=== PATIENT | male | born 1950 | race Caucasian/White ===

== ENCOUNTER 2017-08-08 17:58 | Emergency (ER) | payer MEDICARE, OTHER ==
[2017-08-08 18:18] LABS: Bilirubin Small (Negative); Blood, Urine Large (Negative); Glucose, Urine (Dipstick) Negative (Negative); Ketone, Urine Negative (Negative); Nitrite Negative (Negative); Protein, Urine (Dipstick) 30 mg/dL (Neg-Trace)
[2017-08-08 18:20] LABS: Hyaline Casts/LPF 4-6 HYALINE CAST LPF (0-3 Hyaline); Squamous Epithelial 0-3 HPF (0-3)
[2017-08-08 18:29] LABS: Bacteria/HPF 1+ HPF (None Seen); RBC/HPF GREATER THAN 50-TNTC HPF (0-3); Yeast-All Forms None Seen HPF (None Seen)
[2017-08-08] MEDS ORDERED: Ketorolac Tromethamine 30 MG/ML VIAL ONE (18:35)
[2017-08-08] MEDS ORDERED: Morphine 4 MG/ML VIAL ONE ×2 (18:35)
--- NOTE | 2017-08-08 19:14 | CT ---
CT ABDOMEN AND PELVIS NONCONTRAST: 08/08/17 HISTORY: Right flank pain. FINDINGS: The right renal collecting system and ureter are slightly distended to the level of a 0.5 cm calculus within the distal right ureter within the pelvis. Additional calcifications within the right renal calyces, at least three. They measure up to 0.5 cm g reatest diameter. The left renal collecting system, ureter, and urinary bladder are decompressed without stone evident. Lack of contrast limits evaluation for other abnormalities. There are degenerative changes of the lum bar spine. Dystrophic calcification is apparent within the enlarged prostate gland. IMPRESSION: Partial obstruction at a 5 mm distal right ureteral calculus. Additional nonobstructing right renal c alculi. POS: [facility]
== END 2017-08-08 20:07 | disposition home or self-care (01) ==
LOC: ERS 17:58
DX: N20.2 Calculus of kidney with calculus of ureter (principal)
CPT/HCPCS: 74176; 81003; 81015; 96374; 96375; J1885; J2270